=== PATIENT | male | born 1940 | race Caucasian/White ===

== ENCOUNTER 2017-03-31 16:50 | Inpatient (IN) | payer OTHER ==
[~2017-03-31] VITALS: Ht 176.5 cm; Wt 77.6 kg
[2017-03-31] MEDS ORDERED: SODIUM CHLORIDE FLUSH 10ML SYR IVF ONE (18:00)
[2017-03-31] MEDS ORDERED: MAGN420T PO (18:37)
[2017-03-31] MEDS ORDERED: CLOP75TA PO (18:37)
[2017-03-31] MEDS ORDERED: ISOS20TA3 PO (18:37)
[2017-03-31] MEDS ORDERED: TACR0.5C4 PO (18:37)
[2017-03-31] MEDS ORDERED: NATE120T2 PO (18:37)
[2017-03-31] MEDS ORDERED: RANI150T4 PO (18:37)
[2017-03-31] MEDS ORDERED: CHOL2000 PO (18:37)
[2017-03-31] MEDS ORDERED: INSU100C5 SQ-INSULIN (18:37)
[2017-03-31] MEDS ORDERED: MYCO250C4 PO (18:37)
[2017-03-31] MEDS ORDERED: ATOR80TA75 PO (18:37)
[2017-03-31] MEDS ORDERED: METO200T3 PO (18:37)
[2017-03-31] MEDS ORDERED: ASPI-515 PO (18:37)
[2017-03-31] MEDS ORDERED: SAXA2.5T PO (18:37)
[2017-03-31] MEDS ORDERED: SODIUM CHLORIDE FLUSH 10ML SYR IVF PRN (19:00)
[2017-03-31] MEDS ORDERED: DOCUSATE 100 MG CAPSULE PO PRN (19:30)
[2017-03-31] MEDS ORDERED: morphine SULFATE 10 MG/ML, 1ML IVPush PRN (19:30)
[2017-03-31] MEDS ORDERED: POLYETHYLENE GLYCOL 17 GM PACKET PO PRN (19:30)
[2017-03-31] MEDS ORDERED: ACETAMINOPHEN 325 MG TABLET PO PRN (19:30)
[2017-03-31] MEDS ORDERED: HYDROcodone/APAP 5/325 TABLET PO PRN (19:30)
[2017-03-31] MEDS ORDERED: ONDANSETRON 2MG/ML, 2ML IVPush PRN (19:30)
[2017-03-31] MEDS ORDERED: MOVIPREP POWDER 1 PREP KIT PO ONE (21:00)
[2017-03-31] MEDS: INSULIN ASPART 100 UNITS/ML, PEN SQ-INSULIN SCH (21:00)
[2017-03-31 22:00] VITALS: BP 128/81
[2017-03-31 22:13] VITALS: BP 128/81
[2017-04-01] MEDS: NATEGLINIDE 120 MG TABLET PO SCH ×4 (00:18→19:40)
[2017-04-01] MEDS: NS + 20MEQ KCL 1,000 ML IV SCH ×2 (00:18→08:47)
[2017-04-01] MEDS: ATORVASTATIN 80 MG TABLET PO SCH ×2 (00:18→19:39)
[2017-04-01] MEDS: FAMOTIDINE 20 MG TABLET PO SCH ×2 (00:18→19:39)
[2017-04-01 00:58] VITALS: BP 117/87
[2017-04-01] MEDS: METOPROLOL SUCCINATE 100 MG TAB.ER.24H PO SCH ×3 (01:22→19:40)
[2017-04-01 06:14] LABS: BLOOD UREA NITROGEN 30 mg/dL (7-18)
[2017-04-01 07:00] VITALS: BP 121/76
[2017-04-01] MEDS ORDERED: FENTANYL PF 100 MCG/2ML ONE (07:55)
[2017-04-01] MEDS ORDERED: MIDAZOLAM 1 MG/ML, 2ML ONE (07:55)
[2017-04-01] MEDS: INSULIN ASPART 100 UNITS/ML, PEN SQ-INSULIN SCH ×4 (08:00→19:41)
[2017-04-01] MEDS: ISOSORBIDE MONONITRATE ER 60 MG TABLET PO SCH ×2 (12:05→16:19)
[2017-04-01] MEDS: MAGNESIUM OXIDE 400 MG TABLET PO SCH (12:06)
[2017-04-01] MEDS: TACROLIMUS 0.5 MG CAPSULE PO SCH (12:06)
[2017-04-01 13:25] VITALS: BP 105/68
[2017-04-01 19:11] VITALS: BP 112/74
[2017-04-02 01:22] VITALS: BP 108/69
[2017-04-02 06:11] LABS: BLOOD UREA NITROGEN 21 mg/dL (7-18)
[2017-04-02 06:14] LABS: ASPARTATE AMINO TRANSFERASE 15 U/L (15-37)
[2017-04-02 07:23] VITALS: BP 131/80
[2017-04-02] MEDS: INSULIN ASPART 100 UNITS/ML, PEN SQ-INSULIN SCH ×4 (08:16→20:24)
[2017-04-02] MEDS ORDERED: OMNIPAQUE 350 MG/ML, 100ML BOTTLE ONE (08:23)
[2017-04-02] MEDS: ISOSORBIDE MONONITRATE ER 60 MG TABLET PO SCH ×2 (08:34→18:04)
[2017-04-02] MEDS: METOPROLOL SUCCINATE 100 MG TAB.ER.24H PO SCH ×2 (08:34→20:24)
[2017-04-02] MEDS ORDERED: LIDOCAINE 1%, 20ML ONE (10:43)
[2017-04-02] MEDS ORDERED: MIDAZOLAM 1 MG/ML, 5ML ONE (11:14)
[2017-04-02] MEDS ORDERED: NALOXONE 1 MG/ML, 2ML ONE (11:14)
[2017-04-02] MEDS ORDERED: FENTANYL PF 100 MCG/2ML ONE (11:14)
[2017-04-02] MEDS ORDERED: FLUMAZENIL 0.1 MG/1 ML, 5ML ONE (11:15)
[2017-04-02] MEDS: MAGNESIUM OXIDE 400 MG TABLET PO SCH (13:31)
[2017-04-02] MEDS: NATEGLINIDE 120 MG TABLET PO SCH ×3 (13:31→20:24)
[2017-04-02] MEDS: TACROLIMUS 0.5 MG CAPSULE PO SCH (13:31)
[2017-04-02 14:42] VITALS: BP 122/72
[2017-04-02 19:29] VITALS: BP 141/87
[2017-04-02] MEDS: ATORVASTATIN 80 MG TABLET PO SCH (20:24)
[2017-04-02] MEDS: FAMOTIDINE 20 MG TABLET PO SCH (20:24)
[2017-04-03 01:15] VITALS: BP 137/87
[2017-04-03 06:31] LABS: BLOOD UREA NITROGEN 20 mg/dL (7-18)
[2017-04-03 07:30] VITALS: BP 147/92
[2017-04-03] MEDS: MAGNESIUM OXIDE 400 MG TABLET PO SCH (08:53)
[2017-04-03] MEDS: METOPROLOL SUCCINATE 100 MG TAB.ER.24H PO SCH (08:56)
[2017-04-03] MEDS: TACROLIMUS 0.5 MG CAPSULE PO SCH (08:56)
[2017-04-03] MEDS: ISOSORBIDE MONONITRATE ER 60 MG TABLET PO SCH ×2 (08:57→16:56)
[2017-04-03] MEDS: NATEGLINIDE 120 MG TABLET PO SCH ×2 (08:57→16:00)
[2017-04-03] MEDS: INSULIN ASPART 100 UNITS/ML, PEN SQ-INSULIN SCH ×3 (09:00→16:00)
[2017-04-03 13:40] VITALS: BP 128/76
== END 2017-04-03 17:24 | disposition home or self-care (01) | DRG 377 ==
LOC: ED 19:01 → EDIP 19:09 → 3NE 22:46
PROVIDERS: ADMIT Family Medicine; ATTEND Family Medicine
PROC: 0W3P8ZZ Control Bleeding in Gastrointestinal Tract, Via Natural or Artificial Opening Endoscopic (ICD-10-PCS; 2017-04-01)
PROC: 0DBN8ZZ Excision of Sigmoid Colon, Via Natural or Artificial Opening Endoscopic (ICD-10-PCS; principal; 2017-04-01 13:30)
PROC: B4101ZZ Fluoroscopy of Abdominal Aorta using Low Osmolar Contrast (ICD-10-PCS; 2017-04-02)
DX: K57.31 Diverticulosis of large intestine without perforation or abscess with bleeding (principal); N17.0 Acute kidney failure with tubular necrosis; Z94.4 Liver transplant status; D12.5 Benign neoplasm of sigmoid colon; E11.22 Type 2 diabetes mellitus with diabetic chronic kidney disease; I12.9 Hypertensive chronic kidney disease with stage 1 through stage 4 chronic kidney disease, or unspecified chronic kidney disease; I25.10 Atherosclerotic heart disease of native coronary artery without angina pectoris; K64.1 Second degree hemorrhoids; N40.0 Benign prostatic hyperplasia without lower urinary tract symptoms; Z82.49 Family history of ischemic heart disease and other diseases of the circulatory system; Z86.73 Personal history of transient ischemic attack (TIA), and cerebral infarction without residual deficits; Z87.891 Personal history of nicotine dependence; Z95.1 Presence of aortocoronary bypass graft; Z98.61 Coronary angioplasty status; Z79.82 Long term (current) use of aspirin; Z79.4 Long term (current) use of insulin; Z79.899 Other long term (current) drug therapy; Z79.02 Long term (current) use of antithrombotics/antiplatelets; N18.3 Chronic kidney disease, stage 3 (moderate)
CPT/HCPCS: 36415; 37244; 71010; 74174; 80048; 80053; 82962; 83735; 85014; 85018; 85025; 85610; 88305; 93005; 99285; J1815; J2250; J3010; J3480; J3490; J7507; J7517; Q9967; C1751; J2310